=== PATIENT | male | born 1985 | race Caucasian/White ===

== ENCOUNTER 2021-11-20 15:15 | Observation (INO) ==
[2021-11-20] MEDS ORDERED: *HR* LORazepam 2 MG/ML VIAL IVP PRN ×2 (16:10)
[2021-11-20] MEDS ORDERED: Ondansetron 4 MG/2 ML VIAL IVP PRN (16:15)
[2021-11-20] MEDS ORDERED: Isovue-370 500 ML BOTTLE IVP ONE (16:15)
[2021-11-20] MEDS ORDERED: 0.9 % Sodium Chloride 1,000 ML IV ONE (16:15)
[2021-11-20] MEDS ORDERED: Famotidine 20 MG/2 ML VIAL IVP ONE (16:15)
[2021-11-20] MEDS ORDERED: Pantoprazole 40 MG VIAL IVP ONE (16:15)
[2021-11-20] MEDS: Thiamine (B-1) 100 MG TABLET PO SCH (16:25)
[2021-11-20 16:30] LABS: Basophils % 0.4 %; Hematocrit 41.8 % (37.5-50.1); Hemoglobin 15.2 g/dL (12.9-16.9); Immature Granulocytes % 0.4 % (0-4); Lymphocytes % 19.2 %; Mean Corpuscular HGB Conc 36.4 g/dL (31.6-35.5); Mean Corpuscular Hemoglobin 33.9 pg (28.0-33.3); Mean Corpuscular Volume 93.3 fL (83.0-100.0); Mean Platelet Volume 9.1 fL (9.4-12.4); Monocytes # 0.5 K/mcL (0.0-1.3); Monocytes % 10.3 %; Neutrophils # 3.5 K/mcL (1.6-8.9); Platelet Count 101 K/mcL (140-400); Red Blood Count 4.48 M/mcL (4.19-5.50); Red Cell Distribution Width 13.4 % (11.5-14.5); Segmented Neutrophils % 69.7 %
[2021-11-20 16:37] LABS: Prothrombin Time 11.2 Seconds (9.4-12.1)
[2021-11-20 16:38] LABS: Alanine Aminotransferase 49 Units/L (7-52); Albumin 4.1 g/dL (3.5-5.7); Albumin/Globulin Ratio 1.6 (1.1-2.2); Alkaline Phosphatase 71 Units/L (34-104); Amylase 45 Units/L (29-103); Aspartate Amino Transferase 96 Units/L (13-39); BUN/Creatinine Ratio 8 (6-26); Bilirubin,Direct 0.1 mg/dL (0.0-0.2); Bilirubin,Indirect 0.5 mg/dL (0.0-1.0); Bilirubin,Total 0.6 mg/dL (0.3-1.0); Blood Urea Nitrogen 8 mg/dL (6-20); Calcium 8.9 mg/dL (8.6-10.3); Carbon Dioxide 25 mEq/L (23-29); Chloride 100 mEq/L (98-107); Globulin 2.6 g/dL (2.4-3.5); Glucose 79 mg/dL (70-105); Lipase 28 Units/L (11-82); Osmolality,Calculated 287 (280-300); Potassium 3.4 mEq/L (3.5-5.1); Sodium 140 mEq/L (136-145); Total Protein 6.7 g/dL (6.4-8.9); Troponin I < 0.03 ng/mL (< 0.04); eGFR For African Americans > 60 (> 60); eGFR For Non-African Americans > 60 (> 60)
[2021-11-20 16:40] LABS: Activated Partial Thrombo Time 29.5 Seconds (26.0-36.0)
[2021-11-20] MEDS: Folic Acid 1 MG TABLET PO SCH (17:51)
[2021-11-20] MEDS: Vitamin B Complex/Vit C/Vit E 1 EACH TABLET PO SCH (17:51)
[2021-11-20] MEDS: D5% in 0.9% NACL w KCl 20 MEQ/1,000 ML MLS IVC SCH (18:31)
[2021-11-20] MEDS: *HR* LORazepam 2 MG/ML VIAL IVP PRN (18:38)
[2021-11-20 18:40] LABS: Influenza A PCR Negative (Negative); Influenza B PCR Negative (Negative); Resp. Syncytial Virus PCR Negative (Negative)
[2021-11-20 18:41] LABS: SARS-CoV-2 by PCR (In House) Negative (Negative)
[2021-11-20 18:58] LABS: Bilirubin,Urine Negative (Negative); Blood,Urine Negative (Negative); Clarity,Urine Clear (Clear); Color,Urine Light-Yellow (Yellow); Glucose,Urine (UA) Normal (Normal); Ketones,Urine 20 mg/dL (Negative); Leukocyte Esterase,Urine Negative (Negative); Mucus,Urine Few per lpf (None-Few); Nitrite,Urine Negative (Negative); PH,Urine 7.5 pH Units (5.0-8.0); Protein,Urine 50 mg/dL (Neg-Trace); RBC,Urine 0-3 per hpf (0-3); Specific Gravity,Urine > 1.030 (1.010-1.025); Urobilinogen,Urine Normal (Normal); WBC,Urine 0-3 per hpf (0-3)
[2021-11-20 19:13] LABS: Amphetamine Screen,Urine Negative ng/mL (Cutoff=1000); Barbiturate Screen,Urine Negative ng/mL (Cutoff=200); Benzodiazepines Screen,Urine Negative ng/mL (Cutoff=200); Cannabinoid Screen,Urine Positive ng/mL (Cutoff = 50); Cocaine Screen,Urine Negative ng/mL (Cutoff= 300); Opiate Screen,Urine Negative ng/mL (Cutoff=300); Phencyclidine Screen,Urine Negative ng/mL (Cutoff=25)
[2021-11-20] MEDS ORDERED: Naloxone 0.4 MG/ML INJ IVP PRN (20:43)
[2021-11-21] MEDS: Ondansetron 4 MG/2 ML VIAL IVP PRN (01:21)
[2021-11-21 01:27] LABS: Basophils % 0.6 %; Immature Granulocytes % 0.3 % (0-4); Mean Corpuscular Volume 94.1 fL (83.0-100.0)
[2021-11-21 01:29] LABS: Eosinophils % 0.6 %; Hematocrit 36.6 % (37.5-50.1); Hemoglobin 13.3 g/dL (12.9-16.9); Immature Platelets 3.5 % (1.1-6.1); Lymphocytes % 29.9 %; Mean Corpuscular HGB Conc 36.3 g/dL (31.6-35.5); Mean Corpuscular Hemoglobin 34.2 pg (28.0-33.3); Mean Platelet Volume 9.8 fL (9.4-12.4); Monocytes # 0.5 K/mcL (0.0-1.3); Monocytes % 13.7 %; Neutrophils # 1.9 K/mcL (1.6-8.9); Red Blood Count 3.89 M/mcL (4.19-5.50); Red Cell Distribution Width 13.5 % (11.5-14.5); Segmented Neutrophils % 54.9 %; White Blood Count 3.4 K/mcL (4.3-11.1)
[2021-11-21 01:30] LABS: Platelet Count 95 K/mcL (140-400)
[2021-11-21 01:34] LABS: INR 1.1; Prothrombin Time 11.7 Seconds (9.4-12.1)
[2021-11-21] MEDS: 0.9 % Sodium Chloride 1,000 ML IVC SCH ×2 (01:42→12:53)
[2021-11-21 01:47] LABS: Alanine Aminotransferase 37 Units/L (7-52); Albumin 3.3 g/dL (3.5-5.7); Albumin/Globulin Ratio 1.5 (1.1-2.2); Alkaline Phosphatase 61 Units/L (34-104); Aspartate Amino Transferase 63 Units/L (13-39); BUN/Creatinine Ratio 8 (6-26); Bilirubin,Direct 0.1 mg/dL (0.0-0.2); Bilirubin,Indirect 0.5 mg/dL (0.0-1.0); Bilirubin,Total 0.6 mg/dL (0.3-1.0); Blood Urea Nitrogen 8 mg/dL (6-20); Carbon Dioxide 25 mEq/L (23-29); Chloride 105 mEq/L (98-107); Globulin 2.2 g/dL (2.4-3.5); Glucose 102 mg/dL (70-105); Magnesium 1.5 mg/dL (1.6-2.6); Osmolality,Calculated 285 (280-300); Potassium 3.4 mEq/L (3.5-5.1); Sodium 138 mEq/L (136-145); Total Protein 5.5 g/dL (6.4-8.9); eGFR For African Americans > 60 (> 60); eGFR For Non-African Americans > 60 (> 60)
[2021-11-21 01:59] LABS: Thyroid Stimulating Hormone 3.507 mcIU/mL (0.340-5.600)
[2021-11-21] MEDS: D5% in 0.9% NACL w KCl 20 MEQ/1,000 ML MLS IVC SCH ×2 (05:14→15:42)
[2021-11-21] MEDS: Pantoprazole 40 MG VIAL IVP SCH (09:01)
[2021-11-21] MEDS: Vitamin B Complex/Vit C/Vit E 1 EACH TABLET PO SCH (09:27)
[2021-11-21] MEDS: Folic Acid 1 MG TABLET PO SCH (09:27)
[2021-11-21] MEDS: Thiamine (B-1) 100 MG TABLET PO SCH (09:27)
[2021-11-21] MEDS: *HR* LORazepam 2 MG/ML VIAL IVP PRN (22:52)
[2021-11-22] MEDS: D5% in 0.9% NACL w KCl 20 MEQ/1,000 ML MLS IVC SCH ×3 (01:06→15:23)
[2021-11-22] MEDS: Pantoprazole 40 MG VIAL IVP SCH (08:14)
[2021-11-22] MEDS: Thiamine (B-1) 100 MG TABLET PO SCH (08:14)
[2021-11-22] MEDS: Vitamin B Complex/Vit C/Vit E 1 EACH TABLET PO SCH (08:14)
[2021-11-22] MEDS: Folic Acid 1 MG TABLET PO SCH (08:14)
[2021-11-22] MEDS: Ondansetron 4 MG/2 ML VIAL IVP PRN (12:09)
[2021-11-22] MEDS: *HR* LORazepam 2 MG/ML VIAL IVP PRN (19:51)
[2021-11-23] MEDS: D5% in 0.9% NACL w KCl 20 MEQ/1,000 ML MLS IVC SCH (01:29)
[2021-11-23] MEDS: Folic Acid 1 MG TABLET PO SCH (08:01)
[2021-11-23] MEDS: Thiamine (B-1) 100 MG TABLET PO SCH (08:01)
[2021-11-23] MEDS: Pantoprazole 40 MG VIAL IVP SCH (08:01)
[2021-11-23] MEDS: Vitamin B Complex/Vit C/Vit E 1 EACH TABLET PO SCH (08:01)
[2021-11-23 10:39] VITALS: BP 111/73; PULSE 57; TEMP 97.8; O2SAT 97
== END 2021-11-23 12:55 | disposition home or self-care (01) ==
LOC: 3BNU 15:15 → EMEROOARM 15:15 → SUATTDRO 19:40 → 3BNU 20:27
PROVIDERS: ADMIT Internal Medicine; ATTEND Registered Nurse

== ENCOUNTER 2022-01-17 14:54 | Observation (INO) ==
[2022-01-17 15:41] LABS: Basophils % 0.7 %; Eosinophils % 0.2 %; Hemoglobin 14.4 g/dL (12.9-16.9)
[2022-01-17 15:43] LABS: Hematocrit 40.3 % (37.5-50.1); Immature Granulocytes % 0.4 % (0-4); Immature Platelets 5.3 % (1.1-6.1); Lymphocytes # 1.1 K/mcL (0.6-4.6); Lymphocytes % 23.6 %; Mean Corpuscular HGB Conc 35.7 g/dL (31.6-35.5); Mean Corpuscular Hemoglobin 34.9 pg (28.0-33.3); Mean Corpuscular Volume 97.6 fL (83.0-100.0); Mean Platelet Volume 10.3 fL (9.4-12.4); Monocytes # 0.4 K/mcL (0.0-1.3); Monocytes % 9.5 %; Platelet Count 93 K/mcL (140-400); Red Blood Count 4.13 M/mcL (4.19-5.50); Red Cell Distribution Width 13.2 % (11.5-14.5); Segmented Neutrophils % 65.6 %; White Blood Count 4.5 K/mcL (4.3-11.1)
[2022-01-17 15:59] LABS: BUN/Creatinine Ratio 7 (6-26); Blood Urea Nitrogen 7 mg/dL (6-20); Carbon Dioxide 23 mEq/L (23-29); Chloride 103 mEq/L (98-107); Glucose 76 mg/dL (70-105); Osmolality,Calculated 289 (280-300); Potassium 3.4 mEq/L (3.5-5.1); Sodium 141 mEq/L (136-145); eGFR For African Americans > 60 (> 60); eGFR For Non-African Americans > 60 (> 60)
[2022-01-17] MEDS ORDERED: *HR* LORazepam 2 MG/ML VIAL IVP ONE (19:07)
[2022-01-17] MEDS ORDERED: 0.9 % Sodium Chloride 1,000 ML IVC ONE (19:07)
[2022-01-17] MEDS ORDERED: Ondansetron 4 MG/2 ML VIAL IVP ONE (19:08)
[2022-01-17 19:10] LABS: Alanine Aminotransferase 37 Units/L (7-52); Albumin 4.1 g/dL (3.5-5.7); Albumin/Globulin Ratio 1.6 (1.1-2.2); Alkaline Phosphatase 74 Units/L (34-104); Aspartate Amino Transferase 105 Units/L (13-39); Bilirubin,Direct 0.2 mg/dL (0.0-0.2); Bilirubin,Indirect 0.7 mg/dL (0.0-1.0); Bilirubin,Total 0.9 mg/dL (0.3-1.0); Ethanol 35 mg/dL (Less than 10); Globulin 2.5 g/dL (2.4-3.5); Lipase 39 Units/L (11-82); Total Protein 6.6 g/dL (6.4-8.9); Troponin I < 0.03 ng/mL (< 0.04)
[2022-01-17] MEDS ORDERED: Naloxone 0.4 MG/ML INJ IVP PRN (20:54)
[2022-01-17] MEDS ORDERED: Ondansetron 4 MG/2 ML VIAL IVP PRN (20:54)
[2022-01-17] MEDS ORDERED: *HR* LORazepam 2 MG/ML VIAL IVP PRN ×3 (20:56)
[2022-01-17] MEDS ORDERED: Melatonin 3 MG TABLET PO PRN (21:00)
[2022-01-17] MEDS ORDERED: hydrOXYzine pamoate 25 MG CAPSULE PO PRN (21:41)
[2022-01-17] MEDS: *HR* Promethazine 25 MG/ML VIAL IM PRN (22:37)
[2022-01-18 03:25] LABS: Hemoglobin 13.3 g/dL (12.9-16.9); Monocytes % 13.8 %
[2022-01-18 03:27] LABS: Basophils % 0.7 %; Eosinophils % 0.7 %; Hematocrit 37.7 % (37.5-50.1); Immature Granulocytes % 0.7 % (0-4); Immature Platelets 5.4 % (1.1-6.1); Lymphocytes # 0.8 K/mcL (0.6-4.6); Mean Corpuscular HGB Conc 35.3 g/dL (31.6-35.5); Mean Corpuscular Hemoglobin 35.6 pg (28.0-33.3); Mean Corpuscular Volume 100.8 fL (83.0-100.0); Mean Platelet Volume 10.2 fL (9.4-12.4); Monocytes # 0.4 K/mcL (0.0-1.3); Neutrophils # 1.8 K/mcL (1.6-8.9); Red Blood Count 3.74 M/mcL (4.19-5.50); Red Cell Distribution Width 13.2 % (11.5-14.5); Segmented Neutrophils % 59.1 %
[2022-01-18 03:32] LABS: Prothrombin Time 11.2 Seconds (9.4-12.1)
[2022-01-18 03:39] LABS: Platelet Count 80 K/mcL (140-400)
[2022-01-18 03:54] LABS: BUN/Creatinine Ratio 9 (6-26); Blood Urea Nitrogen 9 mg/dL (6-20); Calcium 8.2 mg/dL (8.6-10.3); Carbon Dioxide 25 mEq/L (23-29); Chloride 106 mEq/L (98-107); Glucose 106 mg/dL (70-105); Magnesium 1.7 mg/dL (1.6-2.6); Osmolality,Calculated 285 (280-300); Potassium 3.7 mEq/L (3.5-5.1); Sodium 138 mEq/L (136-145); eGFR For African Americans > 60 (> 60); eGFR For Non-African Americans > 60 (> 60)
[2022-01-18 04:08] LABS: Folate 5.1 ng/mL (3.0-16.0)
[2022-01-18 07:13] VITALS: BP 132/83; PULSE 42; TEMP 97.9; O2SAT 98
[2022-01-18] MEDS: *HR* Promethazine 25 MG/ML VIAL IM PRN (08:17)
[2022-01-18] MEDS ORDERED: Folic Acid 1 MG TABLET PO SCH (09:00)
[2022-01-18] MEDS ORDERED: Vitamin B Complex/Vit C/Vit E 1 EACH TABLET PO SCH (09:00)
[2022-01-18] MEDS ORDERED: Thiamine (B-1) 100 MG TABLET PO SCH (09:00)
[2022-01-18] MEDS ORDERED: Cyanocobalamin (B-12) 1,000 MCG/ML VIAL IM ONE (11:14)
[2022-01-19] MEDS ORDERED: Cyanocobalamin (B-12) 1,000 MCG TABLET PO SCH (09:00)
== END 2022-01-18 12:38 | disposition home or self-care (01) ==
LOC: EMEROOARM 14:54 → 2NENU 14:54 → SUATTDRO 20:37 → 2NENU 21:55
PROVIDERS: ADMIT Internal Medicine; ATTEND Internal Medicine

== ENCOUNTER 2022-02-09 13:13 | Inpatient (IN) ==
[2022-02-09 14:05] LABS: Basophils % 0.4 %; Eosinophils % 0.1 %; Hematocrit 44.5 % (37.5-50.1); Red Cell Distribution Width 12.9 % (11.5-14.5)
[2022-02-09 14:06] LABS: Hemoglobin 16.1 g/dL (12.9-16.9); Immature Granulocytes % 0.3 % (0-4); Immature Platelets 4.9 % (1.1-6.1); Lymphocytes # 1.8 K/mcL (0.6-4.6); Lymphocytes % 18.6 %; Mean Corpuscular HGB Conc 36.2 g/dL (31.6-35.5); Mean Corpuscular Hemoglobin 35.4 pg (28.0-33.3); Mean Corpuscular Volume 97.8 fL (83.0-100.0); Mean Platelet Volume 10.4 fL (9.4-12.4); Monocytes # 0.8 K/mcL (0.0-1.3); Monocytes % 8.1 %; Neutrophils # 6.8 K/mcL (1.6-8.9); Red Blood Count 4.55 M/mcL (4.19-5.50); Segmented Neutrophils % 72.5 %; White Blood Count 9.4 K/mcL (4.3-11.1)
[2022-02-09 14:07] LABS: Platelet Count 89 K/mcL (140-400)
[2022-02-09 14:16] LABS: Alanine Aminotransferase 72 Units/L (7-52); Albumin 4.8 g/dL (3.5-5.7); Albumin/Globulin Ratio 1.8 (1.1-2.2); Alkaline Phosphatase 94 Units/L (34-104); Aspartate Amino Transferase 215 Units/L (13-39); BUN/Creatinine Ratio 7 (6-26); Bilirubin,Direct 0.2 mg/dL (0.0-0.2); Bilirubin,Indirect 0.7 mg/dL (0.0-1.0); Bilirubin,Total 0.9 mg/dL (0.3-1.0); Blood Urea Nitrogen 8 mg/dL (6-20); Calcium 9.9 mg/dL (8.6-10.3); Carbon Dioxide 16 mEq/L (23-29); Chloride 102 mEq/L (98-107); Globulin 2.7 g/dL (2.4-3.5); Glucose 115 mg/dL (70-105); Osmolality,Calculated 289 (280-300); Potassium 3.6 mEq/L (3.5-5.1); Salicylate < 2.5 mg/dL (15.0-30.0); Sodium 140 mEq/L (136-145); Total Protein 7.5 g/dL (6.4-8.9)
[2022-02-09] MEDS ORDERED: diazePAM 10 MG TABLET PO PRN (15:09)
[2022-02-09] MEDS ORDERED: diazePAM 10 MG/2 ML SYRINGE IVP PRN ×3 (15:09)
[2022-02-09] MEDS ORDERED: diazePAM 5 MG TABLET PO PRN ×3 (15:09)
[2022-02-09] MEDS: diazePAM 10 MG/2 ML SYRINGE IVP PRN ×4 (15:20→22:12)
[2022-02-09] MEDS ORDERED: Thiamine (B-1) 200 MG in 0.9 % Sodium Chloride 50 ML IVPB ONE (15:30)
[2022-02-09] MEDS ORDERED: Folic Acid 1 MG in 0.9 % Sodium Chloride 50 ML IVPB ONE (15:30)
[2022-02-09] MEDS ORDERED: Ringers Solution, Lactated 1,000 ML IVC ONE (15:58)
[2022-02-09] MEDS ORDERED: Ondansetron 4 MG/2 ML VIAL IVP ONE (16:03)
[2022-02-09 16:19] LABS: Lipase 52 Units/L (11-82)
[2022-02-09] MEDS ORDERED: Mag Hydrox/Al Hydrox/Simeth 30 ML UDC PO PRN (17:41)
[2022-02-09] MEDS ORDERED: Naloxone 0.4 MG/ML INJ IVP PRN (17:41)
[2022-02-09 18:14] LABS: Bilirubin,Urine Negative (Negative); Blood,Urine Negative (Negative); Clarity,Urine Clear (Clear); Color,Urine Yellow (Yellow); Glucose,Urine (UA) Normal (Normal); Ketones,Urine 60 mg/dL (Negative); Leukocyte Esterase,Urine Negative (Negative); Mucus,Urine Few per lpf (None-Few); Nitrite,Urine Negative (Negative); Protein,Urine 100 mg/dL (Neg-Trace); RBC,Urine 0-3 per hpf (0-3); Specific Gravity,Urine 1.029 (1.010-1.025); WBC,Urine 0-3 per hpf (0-3)
[2022-02-09 18:16] LABS: Amphetamine Screen,Urine Negative ng/mL (Cutoff=1000); Barbiturate Screen,Urine Negative ng/mL (Cutoff=200); Benzodiazepines Screen,Urine Positive ng/mL (Cutoff=200); Cannabinoid Screen,Urine Positive ng/mL (Cutoff = 50); Cocaine Screen,Urine Negative ng/mL (Cutoff= 300); Opiate Screen,Urine Negative ng/mL (Cutoff=300); Phencyclidine Screen,Urine Negative ng/mL (Cutoff=25)
[2022-02-09] MEDS: D5% in 0.45% NACL 1,000 ML IVC SCH (19:41)
[2022-02-09] MEDS: diazePAM 5 MG TABLET PO PRN (19:41)
[2022-02-09] MEDS: Melatonin 3 MG TABLET PO PRN (19:42)
[2022-02-09 19:44] LABS: Prothrombin Time 11.5 Seconds (9.4-12.1)
[2022-02-09] MEDS: Thiamine (B-1) 100 MG, Folic Acid 1 MG, MVI, adult with vitamin K 10 ML in 0.9 % Sodi... IVPB SCH (22:27)
[2022-02-10] MEDS: D5% in 0.45% NACL 1,000 ML IVC SCH (02:13)
[2022-02-10] MEDS: diazePAM 10 MG/2 ML SYRINGE IVP PRN ×5 (02:17→21:00)
[2022-02-10 05:58] LABS: Mean Corpuscular Volume 101.9 fL (83.0-100.0)
[2022-02-10 06:00] LABS: Hemoglobin 13.3 g/dL (12.9-16.9); Immature Platelets 7.6 % (1.1-6.1); Mean Corpuscular Hemoglobin 35.7 pg (28.0-33.3); Mean Platelet Volume 10.6 fL (9.4-12.4); Red Blood Count 3.73 M/mcL (4.19-5.50); White Blood Count 3.5 K/mcL (4.3-11.1)
[2022-02-10 06:08] LABS: Albumin 3.7 g/dL (3.5-5.7); Albumin/Globulin Ratio 1.8 (1.1-2.2); Bilirubin,Total 1.3 mg/dL (0.3-1.0); Calcium 8.4 mg/dL (8.6-10.3); Globulin 2.1 g/dL (2.4-3.5); Magnesium 1.6 mg/dL (1.6-2.6); Potassium 3.3 mEq/L (3.5-5.1); Total Protein 5.8 g/dL (6.4-8.9)
[2022-02-10] MEDS: Ondansetron 4 MG/2 ML VIAL IVP PRN (12:53)
[2022-02-11] MEDS: diazePAM 10 MG/2 ML SYRINGE IVP PRN ×4 (01:33→18:00)
[2022-02-11] MEDS: Melatonin 3 MG TABLET PO PRN (01:33)
[2022-02-11] MEDS: Thiamine (B-1) 100 MG, Folic Acid 1 MG, MVI, adult with vitamin K 10 ML in 0.9 % Sodi... IVPB SCH (01:50)
[2022-02-11 06:02] LABS: Red Cell Distribution Width 12.6 % (11.5-14.5)
[2022-02-11 06:04] LABS: Hematocrit 38.5 % (37.5-50.1); Hemoglobin 13.5 g/dL (12.9-16.9); Immature Platelets 9.6 % (1.1-6.1); Mean Corpuscular HGB Conc 35.1 g/dL (31.6-35.5); Mean Corpuscular Hemoglobin 35.7 pg (28.0-33.3); Mean Corpuscular Volume 101.9 fL (83.0-100.0); Mean Platelet Volume 11.8 fL (9.4-12.4); Red Blood Count 3.78 M/mcL (4.19-5.50); White Blood Count 4.2 K/mcL (4.3-11.1)
[2022-02-11 06:56] LABS: Alanine Aminotransferase 45 Units/L (7-52); Albumin 3.5 g/dL (3.5-5.7); Albumin/Globulin Ratio 1.5 (1.1-2.2); Alkaline Phosphatase 65 Units/L (34-104); Aspartate Amino Transferase 93 Units/L (13-39); BUN/Creatinine Ratio 7 (6-26); Blood Urea Nitrogen 7 mg/dL (6-20); Calcium 8.5 mg/dL (8.6-10.3); Carbon Dioxide 24 mEq/L (23-29); Chloride 105 mEq/L (98-107); Globulin 2.3 g/dL (2.4-3.5); Glucose 82 mg/dL (70-105); Osmolality,Calculated 281 (280-300); Potassium 3.4 mEq/L (3.5-5.1); Sodium 137 mEq/L (136-145); Total Protein 5.8 g/dL (6.4-8.9)
[2022-02-11] MEDS: Ondansetron 4 MG/2 ML VIAL IVP PRN (09:32)
[2022-02-11] MEDS: Acetaminophen 325 MG TABLET PO PRN (09:32)
[2022-02-12] MEDS: diazePAM 10 MG/2 ML SYRINGE IVP PRN (01:05)
[2022-02-12] MEDS: Acetaminophen 325 MG TABLET PO PRN (01:06)
[2022-02-12] MEDS: Melatonin 3 MG TABLET PO PRN (01:06)
[2022-02-12] MEDS ORDERED: Thiamine (B-1) 100 MG, Folic Acid 1 MG, MVI, adult with vitamin K 10 ML in 0.9 % Sodi... IVPB SCH (02:00)
[2022-02-12 02:40] LABS: Alanine Aminotransferase 60 Units/L (7-52); Albumin 3.7 g/dL (3.5-5.7); Albumin/Globulin Ratio 1.7 (1.1-2.2); Alkaline Phosphatase 63 Units/L (34-104); Aspartate Amino Transferase 102 Units/L (13-39); BUN/Creatinine Ratio 8 (6-26); Bilirubin,Total 0.8 mg/dL (0.3-1.0); Blood Urea Nitrogen 8 mg/dL (6-20); Calcium 8.7 mg/dL (8.6-10.3); Carbon Dioxide 23 mEq/L (23-29); Chloride 107 mEq/L (98-107); Globulin 2.2 g/dL (2.4-3.5); Glucose 82 mg/dL (70-105); Osmolality,Calculated 283 (280-300); Potassium 3.8 mEq/L (3.5-5.1); Sodium 138 mEq/L (136-145); Total Protein 5.9 g/dL (6.4-8.9)
[2022-02-12] MEDS: Folic Acid 1 MG TABLET PO SCH (10:20)
[2022-02-12] MEDS: diazePAM 5 MG TABLET PO PRN ×2 (10:20→21:53)
[2022-02-12] MEDS: Multivit/Ca/Min/Fe/FA 1 TAB TABLET PO SCH (10:20)
[2022-02-12] MEDS: Thiamine (B-1) 100 MG TABLET PO SCH (10:20)
[2022-02-13 02:56] LABS: Hematocrit 37.6 % (37.5-50.1); Hemoglobin 13.5 g/dL (12.9-16.9); Mean Corpuscular HGB Conc 35.9 g/dL (31.6-35.5)
[2022-02-13 02:58] LABS: Immature Platelets 9.8 % (1.1-6.1); Mean Corpuscular Hemoglobin 35.6 pg (28.0-33.3); Mean Corpuscular Volume 99.2 fL (83.0-100.0); Mean Platelet Volume 11.7 fL (9.4-12.4); Red Blood Count 3.79 M/mcL (4.19-5.50); Red Cell Distribution Width 12.1 % (11.5-14.5); White Blood Count 5.8 K/mcL (4.3-11.1)
[2022-02-13 03:16] LABS: Albumin 3.7 g/dL (3.5-5.7); Albumin/Globulin Ratio 1.7 (1.1-2.2); Bilirubin,Direct 0.1 mg/dL (0.0-0.2); Bilirubin,Indirect 0.5 mg/dL (0.0-1.0); Bilirubin,Total 0.6 mg/dL (0.3-1.0); Globulin 2.2 g/dL (2.4-3.5); Total Protein 5.9 g/dL (6.4-8.9)
[2022-02-13 06:59] VITALS: TEMP 97.8
[2022-02-13] MEDS: Thiamine (B-1) 100 MG TABLET PO SCH (08:10)
[2022-02-13] MEDS: Multivit/Ca/Min/Fe/FA 1 TAB TABLET PO SCH (08:10)
[2022-02-13] MEDS: Folic Acid 1 MG TABLET PO SCH (08:10)
[2022-02-13 10:22] VITALS: BP 137/94; PULSE 57; O2SAT 95
== END 2022-02-13 10:41 | disposition home or self-care (01) | DRG 775 ==
LOC: EMEROOARM 13:13 → 2NNU 13:13 → SUATTDRO 18:23 → 2NNU 19:03
PROVIDERS: ADMIT Internal Medicine; ATTEND Internal Medicine

== ENCOUNTER 2022-03-13 16:20 | Inpatient (IN) ==
[2022-03-13] MEDS ORDERED: 0.9 % Sodium Chloride 1,000 ML IVC ONE (20:34)
[2022-03-13] MEDS ORDERED: Pantoprazole 40 MG VIAL IVP ONE (21:03)
[2022-03-13] MEDS ORDERED: *HR* LORazepam 2 MG/ML VIAL IVP ONE (21:03)
[2022-03-13] MEDS ORDERED: Ondansetron 4 MG/2 ML VIAL IVP STA (21:03)
[2022-03-13 21:38] LABS: Basophils % 0.7 %; Hematocrit 41.5 % (37.5-50.1); Hemoglobin 14.8 g/dL (12.9-16.9); Immature Granulocytes % 0.2 % (0-4); Immature Platelets 6.3 % (1.1-6.1); Lymphocytes # 0.9 K/mcL (0.6-4.6); Mean Corpuscular HGB Conc 35.7 g/dL (31.6-35.5); Mean Corpuscular Hemoglobin 34.7 pg (28.0-33.3); Mean Corpuscular Volume 97.4 fL (83.0-100.0); Mean Platelet Volume 10.1 fL (9.4-12.4); Monocytes # 0.7 K/mcL (0.0-1.3); Monocytes % 15.9 %; Neutrophils # 2.5 K/mcL (1.6-8.9); Platelet Count 105 K/mcL (140-400); Red Blood Count 4.26 M/mcL (4.19-5.50); Red Cell Distribution Width 12.2 % (11.5-14.5); Segmented Neutrophils % 62.2 %; White Blood Count 4.1 K/mcL (4.3-11.1)
[2022-03-13 21:53] LABS: Alanine Aminotransferase 55 Units/L (7-52); Albumin/Globulin Ratio 1.5 (1.1-2.2); Alkaline Phosphatase 83 Units/L (34-104); Aspartate Amino Transferase 71 Units/L (13-39); BUN/Creatinine Ratio 7 (6-26); Blood Urea Nitrogen 7 mg/dL (6-20); Calcium 9.2 mg/dL (8.6-10.3); Carbon Dioxide 30 mEq/L (23-29); Chloride 101 mEq/L (98-107); Ethanol < 10 mg/dL (Less than 10); Globulin 2.7 g/dL (2.4-3.5); Glucose 88 mg/dL (70-105); Magnesium 1.6 mg/dL (1.6-2.6); Osmolality,Calculated 287 (280-300); Phosphorous 3.1 mg/dL (2.7-4.5); Potassium 3.5 mEq/L (3.5-5.1); Sodium 140 mEq/L (136-145); Total Protein 6.7 g/dL (6.4-8.9)
[2022-03-14] MEDS ORDERED: *HR* LORazepam 2 MG/ML VIAL IVP ONE (01:22)
[2022-03-14 01:29] LABS: Bacteria,Urine Few per hpf (None-Few); Bilirubin,Urine Small (Negative); Blood,Urine Negative (Negative); Clarity,Urine Clear (Clear); Color,Urine Yellow (Yellow); Glucose,Urine (UA) Normal (Normal); Ketones,Urine 40 mg/dL (Negative); Leukocyte Esterase,Urine Negative (Negative); Mucus,Urine Many per lpf (None-Few); Nitrite,Urine Negative (Negative); PH,Urine 8.5 pH Units (5.0-8.0); Protein,Urine >=300 mg/dL (Neg-Trace); Specific Gravity,Urine > 1.030 (1.010-1.025); Squamous Epithelial Cell,Urine Few per hpf (None-Few); WBC,Urine 0-3 per hpf (0-3)
[2022-03-14 03:05] LABS: Amphetamine Screen,Urine Negative ng/mL (Cutoff=1000); Barbiturate Screen,Urine Negative ng/mL (Cutoff=200); Benzodiazepines Screen,Urine Positive ng/mL (Cutoff=200); Cannabinoid Screen,Urine Positive ng/mL (Cutoff = 50); Cocaine Screen,Urine Negative ng/mL (Cutoff= 300); Opiate Screen,Urine Negative ng/mL (Cutoff=300); Phencyclidine Screen,Urine Negative ng/mL (Cutoff=25)
[2022-03-14] MEDS ORDERED: *HR* LORazepam 2 MG/ML VIAL IVP PRN ×2 (03:10→04:00)
[2022-03-14] MEDS ORDERED: Naloxone 0.4 MG/ML INJ IVP PRN (03:40)
[2022-03-14] MEDS ORDERED: 0.9 % Sodium Chloride w KCl 20 MEQ/1,000 ML MLS IVC SCH (03:45)
[2022-03-14 04:34] LABS: Alanine Aminotransferase 47 Units/L (7-52); Albumin 3.6 g/dL (3.5-5.7); Albumin/Globulin Ratio 1.6 (1.1-2.2); Alkaline Phosphatase 74 Units/L (34-104); Amylase 36 Units/L (29-103); Aspartate Amino Transferase 62 Units/L (13-39); BUN/Creatinine Ratio 7 (6-26); Bilirubin,Direct 0.2 mg/dL (0.0-0.2); Bilirubin,Indirect 0.9 mg/dL (0.0-1.0); Bilirubin,Total 1.1 mg/dL (0.3-1.0); Blood Urea Nitrogen 7 mg/dL (6-20); Calcium 8.4 mg/dL (8.6-10.3); Carbon Dioxide 28 mEq/L (23-29); Chloride 104 mEq/L (98-107); Chol/HDL Ratio 2.7 (0-4.9); Cholesterol 165 mg/dL (< 200); Globulin 2.2 g/dL (2.4-3.5); Glucose 86 mg/dL (70-105); HDL Cholesterol 62 mg/dL (40-59); LDL Cholesterol,Calculated 71 mg/dL (< 100); Lipase 57 Units/L (11-82); Osmolality,Calculated 287 (280-300); Potassium 3.4 mEq/L (3.5-5.1); Sodium 140 mEq/L (136-145); Total Protein 5.8 g/dL (6.4-8.9); Triglycerides 161 mg/dL (< 150)
[2022-03-14 04:49] LABS: Hematocrit 37.2 % (37.5-50.1); Hemoglobin 13.3 g/dL (12.9-16.9); Mean Corpuscular HGB Conc 35.8 g/dL (31.6-35.5)
[2022-03-14 04:51] LABS: Immature Platelets 6.9 % (1.1-6.1); Mean Corpuscular Hemoglobin 35.1 pg (28.0-33.3); Mean Corpuscular Volume 98.2 fL (83.0-100.0); Mean Platelet Volume 10.7 fL (9.4-12.4); Red Blood Count 3.79 M/mcL (4.19-5.50); Red Cell Distribution Width 11.9 % (11.5-14.5); White Blood Count 4.3 K/mcL (4.3-11.1)
[2022-03-14] MEDS: 0.9 % Sodium Chloride 1,000 ML IVC SCH ×2 (05:07→20:49)
[2022-03-14] MEDS: Famotidine 20 MG/2 ML VIAL IVP SCH ×2 (05:07→18:04)
[2022-03-14 05:08] LABS: Estimated Average Glucose 91 mg/dl; Hemoglobin A1C 4.8 %
[2022-03-14 06:01] LABS: Influenza A PCR Negative (Negative); Influenza B PCR Negative (Negative); Resp. Syncytial Virus PCR Negative (Negative)
[2022-03-14 06:13] LABS: SARS-CoV-2 by PCR (In House) Negative (Negative)
[2022-03-14] MEDS: Vitamin B Complex/Vit C/Vit E 1 EACH TABLET PO SCH (08:19)
[2022-03-14] MEDS: *HR* LORazepam 2 MG/ML VIAL IVP PRN (08:19)
[2022-03-14] MEDS: Folic Acid 1 MG in 0.9 % Sodium Chloride 50 ML IVPB SCH (08:19)
[2022-03-14] MEDS: Ondansetron 4 MG/2 ML VIAL IVP PRN ×2 (08:26→18:04)
[2022-03-14] MEDS ORDERED: Folic Acid 1 MG TABLET PO SCH (09:00)
[2022-03-14] MEDS: Ibuprofen 400 MG TABLET PO PRN (18:03)
[2022-03-14] MEDS ORDERED: Acetaminophen 325 MG TABLET PO ONE (20:14)
[2022-03-15] MEDS: *HR* LORazepam 2 MG/ML VIAL IVP PRN ×2 (04:23→20:32)
[2022-03-15 05:14] LABS: Hemoglobin 13.2 g/dL (12.9-16.9)
[2022-03-15 05:16] LABS: Hematocrit 37.2 % (37.5-50.1); Immature Platelets 9.5 % (1.1-6.1); Mean Corpuscular HGB Conc 35.5 g/dL (31.6-35.5); Mean Corpuscular Volume 98.7 fL (83.0-100.0); Mean Platelet Volume 10.7 fL (9.4-12.4); Red Blood Count 3.77 M/mcL (4.19-5.50); Red Cell Distribution Width 11.9 % (11.5-14.5); White Blood Count 5.7 K/mcL (4.3-11.1)
[2022-03-15 05:30] LABS: Alanine Aminotransferase 35 Units/L (7-52); Albumin 3.2 g/dL (3.5-5.7); Albumin/Globulin Ratio 1.5 (1.1-2.2); Alkaline Phosphatase 66 Units/L (34-104); Aspartate Amino Transferase 44 Units/L (13-39); BUN/Creatinine Ratio 8 (6-26); Bilirubin,Total 0.8 mg/dL (0.3-1.0); Blood Urea Nitrogen 8 mg/dL (6-20); Calcium 8.1 mg/dL (8.6-10.3); Carbon Dioxide 26 mEq/L (23-29); Chloride 106 mEq/L (98-107); Globulin 2.2 g/dL (2.4-3.5); Glucose 87 mg/dL (70-105); Magnesium 1.6 mg/dL (1.6-2.6); Osmolality,Calculated 284 (280-300); Phosphorous 2.9 mg/dL (2.7-4.5); Potassium 3.4 mEq/L (3.5-5.1); Sodium 138 mEq/L (136-145); Total Protein 5.4 g/dL (6.4-8.9)
[2022-03-15] MEDS: 0.9 % Sodium Chloride 1,000 ML IVC SCH ×2 (08:18→11:12)
[2022-03-15] MEDS: Famotidine 20 MG/2 ML VIAL IVP SCH ×2 (08:18→16:29)
[2022-03-15] MEDS: Magnesium Oxide 400 MG TABLET PO SCH (08:19)
[2022-03-15] MEDS: Vitamin B Complex/Vit C/Vit E 1 EACH TABLET PO SCH (08:19)
[2022-03-15] MEDS: Folic Acid 1 MG in 0.9 % Sodium Chloride 50 ML IVPB SCH (09:26)
[2022-03-15] MEDS: Ibuprofen 400 MG TABLET PO PRN (16:28)
[2022-03-15] MEDS ORDERED: Thiamine (B-1) 100 MG, Folic Acid 1 MG, MVI, adult with vitamin K 10 ML in 0.9 % Sodi... IVPB SCH (18:00)
[2022-03-16] MEDS: *HR* LORazepam 2 MG/ML VIAL IVP PRN (00:44)
[2022-03-16 04:14] LABS: Hematocrit 39.4 % (37.5-50.1); Hemoglobin 14.4 g/dL (12.9-16.9); Mean Corpuscular HGB Conc 36.5 g/dL (31.6-35.5); Mean Corpuscular Hemoglobin 35.5 pg (28.0-33.3); Mean Platelet Volume 11.3 fL (9.4-12.4); Platelet Count 100 K/mcL (140-400); Red Blood Count 4.06 M/mcL (4.19-5.50); Red Cell Distribution Width 11.9 % (11.5-14.5); White Blood Count 6.9 K/mcL (4.3-11.1)
[2022-03-16] MEDS: Famotidine 20 MG/2 ML VIAL IVP SCH (05:43)
[2022-03-16 07:55] VITALS: BP 131/78; PULSE 51; TEMP 98.1; O2SAT 98
[2022-03-16] MEDS: Magnesium Oxide 400 MG TABLET PO SCH (08:33)
[2022-03-16 08:53] LABS: BUN/Creatinine Ratio 7 (6-26); Blood Urea Nitrogen 6 mg/dL (6-20); Calcium 8.4 mg/dL (8.6-10.3); Carbon Dioxide 25 mEq/L (23-29); Chloride 107 mEq/L (98-107); Glucose 82 mg/dL (70-105); Osmolality,Calculated 283 (280-300); Potassium 3.6 mEq/L (3.5-5.1); Sodium 138 mEq/L (136-145)
== END 2022-03-16 09:30 | disposition left against medical advice (07) | DRG 770 ==
LOC: 2ANU 16:20 → EMEROOARM 16:20 → SUATTDRO 03-14 11:21 → 2ANU 03-14 12:30
PROVIDERS: ADMIT Internal Medicine; ATTEND Internal Medicine

== ENCOUNTER 2022-04-13 15:20 | Observation (INO) ==
[2022-04-13] MEDS ORDERED: *HR* LORazepam 1 MG TABLET PO PRN ×3 (18:40→18:45)
[2022-04-13] MEDS ORDERED: *HR* LORazepam 2 MG/ML VIAL IVP PRN ×3 (18:40→18:48)
[2022-04-13 19:47] LABS: BUN/Creatinine Ratio 11 (6-26); Blood Urea Nitrogen 11 mg/dL (6-20); Calcium 9.3 mg/dL (8.6-10.3); Carbon Dioxide 25 mEq/L (23-29); Chloride 103 mEq/L (98-107); Glucose 85 mg/dL (70-105); Magnesium 1.6 mg/dL (1.6-2.6); Osmolality,Calculated 285 (280-300); Sodium 138 mEq/L (136-145)
[2022-04-13 19:56] LABS: Basophils % 0.3 %; Eosinophils % 0.2 %; Hematocrit 39.9 % (37.5-50.1); Hemoglobin 14.4 g/dL (12.9-16.9); Immature Granulocytes % 0.2 % (0-4); Lymphocytes # 1.1 K/mcL (0.6-4.6); Lymphocytes % 17.5 %; Mean Corpuscular HGB Conc 36.1 g/dL (31.6-35.5); Mean Corpuscular Hemoglobin 34.9 pg (28.0-33.3); Mean Corpuscular Volume 96.6 fL (83.0-100.0); Monocytes # 0.5 K/mcL (0.0-1.3); Monocytes % 8.3 %; Neutrophils # 4.5 K/mcL (1.6-8.9); Platelet Count 110 K/mcL (140-400); Red Blood Count 4.13 M/mcL (4.19-5.50); Red Cell Distribution Width 11.9 % (11.5-14.5); Segmented Neutrophils % 73.5 %; White Blood Count 6.1 K/mcL (4.3-11.1)
[2022-04-13] MEDS ORDERED: Acetaminophen 325 MG TABLET PO PRN (20:52)
[2022-04-13] MEDS ORDERED: Naloxone 0.4 MG/ML INJ IVP PRN (20:52)
[2022-04-13] MEDS ORDERED: Ondansetron 4 MG/2 ML VIAL IVP PRN (20:52)
[2022-04-13] MEDS ORDERED: Melatonin 3 MG TABLET PO PRN (20:52)
[2022-04-14] MEDS: *HR* LORazepam 2 MG/ML VIAL IVP PRN ×2 (01:23→09:33)
[2022-04-14 03:30] LABS: Basophils % 0.6 %; Eosinophils % 0.4 %; Hematocrit 40.8 % (37.5-50.1); Hemoglobin 14.5 g/dL (12.9-16.9); Immature Granulocytes % 0.2 % (0-4); Lymphocytes % 21.3 %; Mean Corpuscular HGB Conc 35.5 g/dL (31.6-35.5); Mean Corpuscular Hemoglobin 34.8 pg (28.0-33.3); Mean Corpuscular Volume 97.8 fL (83.0-100.0); Mean Platelet Volume 10.2 fL (9.4-12.4); Monocytes # 0.5 K/mcL (0.0-1.3); Monocytes % 11.2 %; Neutrophils # 3.1 K/mcL (1.6-8.9); Platelet Count 118 K/mcL (140-400); Red Blood Count 4.17 M/mcL (4.19-5.50); Red Cell Distribution Width 11.9 % (11.5-14.5); Segmented Neutrophils % 66.3 %; White Blood Count 4.7 K/mcL (4.3-11.1)
[2022-04-14 03:36] LABS: Prothrombin Time 11.2 Seconds (9.4-12.1)
[2022-04-14 04:06] LABS: Alanine Aminotransferase 63 Units/L (7-52); Albumin 3.7 g/dL (3.5-5.7); Albumin/Globulin Ratio 1.5 (1.1-2.2); Alkaline Phosphatase 64 Units/L (34-104); Aspartate Amino Transferase 121 Units/L (13-39); BUN/Creatinine Ratio 12 (6-26); Bilirubin,Total 1.2 mg/dL (0.3-1.0); Blood Urea Nitrogen 13 mg/dL (6-20); Calcium 8.6 mg/dL (8.6-10.3); Carbon Dioxide 25 mEq/L (23-29); Chloride 104 mEq/L (98-107); Globulin 2.4 g/dL (2.4-3.5); Glucose 91 mg/dL (70-105); Magnesium 1.7 mg/dL (1.6-2.6); Osmolality,Calculated 286 (280-300); Potassium 3.3 mEq/L (3.5-5.1); Sodium 138 mEq/L (136-145); Total Protein 6.1 g/dL (6.4-8.9)
[2022-04-14] MEDS ORDERED: *HR* Enoxaparin 40 MG/0.4 ML SYRINGE SQ SCH (06:00)
[2022-04-14] MEDS ORDERED: Thiamine (B-1) 100 MG TABLET PO SCH (09:00)
[2022-04-14 11:15] VITALS: BP 122/80; PULSE 59; TEMP 98.3; O2SAT 99
== END 2022-04-14 15:50 | disposition home or self-care (01) ==
LOC: EMEROOARM 15:20 → 2ANU 15:20
PROVIDERS: ADMIT Internal Medicine; ATTEND Internal Medicine